=== PATIENT | female | born 1970 | race Caucasian/White ===

== ENCOUNTER 2017-04-08 09:16 | Emergency (ER) | payer BC ==
[~2017-04-08] VITALS: Ht 160 cm; Wt 63.5 kg
[~2017-04-08 09:16] MED LIST: AMOXICILLIN125 MG PO; BECONASE AQ25 GM; FLAGYL500 MG PO
--- NOTE | 2017-04-08 10:16 | Diagnostic Imaging Report ---
Exam: Head CT without contrast History: Unsteady gait, tingling in feet Comparison studies: None Technique: Axial images were obtained from the skull base to the vertex. Coronal and sagittal images reconstructed from the axial data. Intravenous contrast: None Findings: Scalp: No abnormalities. Bones: No fractures, blastic or lytic lesions. Brain sulci: Appropriate for age. Ventricles: Normal in size and configuration. No hydrocephalus. Extra-axial spaces: No masses, no fluid collection. Parenchyma: No abnormal densities. No masses, hemorrhage, acute or chronic vascular insults. Sellar/suprasellar region: No abnormalities. Craniocervical junction: Patent foramen magnum. No Chiari one malformation. IMPRESSION: No intracranial abnormalities. Signed by: Dr. Gonzalo Taylor M.D. on 04/08/2017 10:12 AM
[2017-04-08 11:42] LABS: BILIRUBIN,URINE NEGATIVE (NEGATIVE); KETONES,URINE NEGATIVE (NEGATIVE); LEUKOCYTE ESTERASE ,URINE NEGATIVE (NEGATIVE); NITRITE,URINE NEGATIVE (NEGATIVE); PROTEIN,URINE DIPSTICK NEGATIVE (NEGATIVE); URINE UROBILINOGEN 0.2 mg/dL (0.2 - 1)
[2017-04-08 11:46] LABS: CLARITY,URINE CLEAR (CLEAR); COLOR,URINE YELLOW (YELLOW)
[2017-04-08 12:05] LABS: BASOPHILS # (AUTO) 0.1 (0.0-0.1); BASOPHILS % 0.5 % (0.0-1.0); EOSINOPHILS # (AUTO) 0.1 (0.0-0.4); EOSINOPHILS % 0.5 % (0.0-6.0); HEMATOCRIT 43.8 % (34.2-44.1); HEMOGLOBIN 14.7 g/dL (12.0-16.0); LYMPHOCYTES % 15.7 % (18.0-39.1); MEAN CORPUSCULAR HEMOGLOBIN 29.8 pg (28-32); MEAN CORPUSCULAR HGB CONC 33.6 g/dL (31-35); MEAN CORPUSCULAR VOLUME 88.8 fL (81-99); MONOCYTES # (AUTO) 0.9 (0.2-0.8); MONOCYTES % 4.8 % (4.4-11.3); NEUTROPHILS # (AUTO) 14.9 (2.1-6.9); NEUTROPHILS % 78.1 % (38.7-80.0); PLATELET COUNT 277 x10e3/uL (140-360); RED BLOOD COUNT 4.93 x10e6/uL (3.6-5.1); RED CELL DISTRIBUTION WIDTH 13.4 % (11.7-14.4)
[2017-04-08 12:05] LABS: BACTERIA,URINE RARE /HPF; EPITHELIAL CELLS,URINE RARE /LPF
[2017-04-08 12:19] LABS: ALANINE AMINOTRANSFERASE 13 IU/L (0-55); ALBUMIN 4.5 g/dL (3.5-5.0); ALBUMIN/GLOBULIN RATIO 1.3 (0.8-2.0); ALKALINE PHOSPHATASE 85 IU/L (40-150); ANION GAP 14.1 mmol/L (8-16); BLOOD UREA NITROGEN 10 mg/dL (7-26); BUN/CREATININE RATIO 12 (6-25); CALCIUM 9.9 mg/dL (8.4-10.2); CARBON DIOXIDE 24 mmol/L (22-29); CHLORIDE 109 mmol/L (98-107); CREATINE KINASE 53 IU/L (29-168); CREATININE, SERUM 0.81 mg/dL (0.57-1.11); EST GLOMERULAR FILTRATION RATE > 60 ML/MIN (60-); GLUCOSE 109 mg/dL (74-118); POTASSIUM 4.1 mmol/L (3.5-5.1); SODIUM 143 mmol/L (136-145)
[2017-04-08 12:26] LABS: TROPONIN I 0.003 ng/mL (0-0.300)
== END 2017-04-08 13:30 | disposition left against medical advice (07) ==
LOC: ER 09:16
DX: M54.5 Low back pain (principal); R42 Dizziness and giddiness; F17.210 Nicotine dependence, cigarettes, uncomplicated
CPT/HCPCS: 36415; 70450; 80053; 81001; 82550; 82553; 84484; 85025; 99284

== ENCOUNTER 2017-05-02 16:28 | Emergency (ER) | payer BC ==
[~2017-05-02] VITALS: Ht 160 cm; Wt 68.0 kg
--- OUTSIDE RECORDS SUMMARY | 2017-05-02 16:30 | XMS REPORT | Summary of Care ---
Author Author LIV JONES N.P. Organization Unknown Address Unknown Phone Unavailable Care Team Providers Care Machine Operator Helper Name Role Phone LIV JONES N.P. Unavailable Unavailable Functional Status Name Dates Details Functional status health issues are not documented Status: Name Dates Details Cognitive status health issues are not documented Status: Problems Name Dates Details Vertigo (780.4, R42) Status: Active Medications Name Dates Details Cyclobenzaprine HCl - 5 MG Oral Tablet TAKE 1 TABLET AT BEDTIME NEEDED. LIV JONES N.P. * Start : 13-Apr-2017 Active Allergies and Adverse Reactions Name Dates Details No Known Drug Allergies (Allergy) Status: Active Past Medical History Name Dates Details History of No significant past medical history Status: Resolved Procedures Procedure Dates Details History of tibia fracture repair Completed History of fibula fracture repair Completed Immunization Name Dates Details Immunizations not documented Social History Name Dates Details - Status: Name Dates Details Current every day smoker Vital Signs Date Test Result Details [id number]:00 BP Systolic 181 mm[Hg] Status: BP Diastolic 97 mm[Hg] Status: Temperature 98.6 f Status: Heart Rate 109 /min Status: Respiration Rate 16 /min Status: O2 SAT 98 % Status: 19-Adh-24037:13 BP Systolic 110 mm[Hg] Status: BP Diastolic 88 mm[Hg] Status: Temperature 98.5 f Status: Heart Rate 90 /min Status: Respiration Rate 16 /min Status: O2 SAT 96 % Status: Height 63 in Status: Weight 153 lb Status: Body Mass Index Calculated 27.1 kg/m2 Status: Body Surface Area Calculated 1.73 m2 Status: Results Date Description Value Details Results not documented Plan of Care Name Dates Details Planned Observations Planned Goals not documented Interventions Provided Discussion/Summary* No adverse findings on clinical exam. Her B/P is elevated 181/97. * EKG: Sinus Rhythm. No adverse findings. * Blood glucose: 121. * Reposed in the Quiet room for sosa. 30 minute. * States she still feels slightly dizzy. * She feels she is well enough to drive herself home and go to bed. * Discussed with her: Exacerbation of symptoms: SOB; Increased dizziness: to call for Emergency services. * Gave her my phone number to call me for any concern. * Consult with Dr. Clark:Concurs with plan. * To follow up with her PCP. Instructions Name Dates Details Instructions not documented Encounters No Encounter data documented Encounter Diagnosis: Problem not documented On: 28-Apr-2017
--- OUTSIDE RECORDS SUMMARY | 2017-05-02 16:30 | XMS REPORT ---
Author Author [facility] Address Unknown Phone Unavailable Care Team Providers Care Wholesale Diamond Broker Name Role Phone TRISTAN HAIDER Unavailable Unavailable Problems This patient has no known problems. Allergies, Adverse Reactions, Alerts This patient has no known allergies or adverse reactions. Medications This patient has no known medications. Results Test Description Test Time Test Comments Text Results Atomic Results Result Comments CT BRAIN WO [place] [address] Patient Name: JAYA MONTOYA MR #: [id number] : 1970 Age/Sex: 47/F Req #: [id number] Adm Physician: Ordered by: TRISTAN HAIDER MD Report #: [id number] Location: ER Room/Bed: Procedure: [id number] CT/CT BRAIN WO Exam Date: 04/08/17 Exam Time: 0950 REPORT STATUS: Signed Exam: Head CT without contrast History: Unsteady gait, tingling in feet Comparison studies: None Technique: Axial images were obtained from the skull base to the vertex. Coronal and sagittal images reconstructed from the axial data. Intravenous contrast: None Findings: Scalp: No abnormalities. Bones: No fractures, blastic or lytic lesions. Brain sulci: Appropriate for age. Ventricles: Normal in size and configuration. No hydrocephalus. Extra-axial spaces: No masses, no fluid collection. Parenchyma: No abnormal densities. No masses, hemorrhage, acute or chronic vascular insults. Sellar/suprasellar region: No abnormalities. Craniocervical junction: Patent foramen magnum. No Chiari one malformation. IMPRESSION: No intracranial abnormalities. Signed by: Dr. Kimmie Conte M.D. on 04/08/2017 10:12 AM Dictated By : KIMMIE CONTE MD 1012 Transcribed By: RAJEEV on 04/08/17 1012 COPY TO: TRISTAN HAIDER MD
[2017-05-02] MEDS ORDERED: DEXAMETHASONE SOD PHOS 10 MG/1 ML VIAL IV ONE (18:30)
[2017-05-02] MEDS ORDERED: MECLIZINE HCL 12.5 MG TAB PO ONE (18:30)
[2017-05-02] MEDS ORDERED: SODIUM CHLORIDE 0.9% 1000ML 1,000 ML IV STA (18:30)
[2017-05-02] MEDS ORDERED: SCOPOLAMINE 1.5 MG PATCH TOP ONE (18:40)
[2017-05-02 18:43] LABS: BASOPHILS # (AUTO) 0.1 (0.0-0.1); BASOPHILS % 0.5 % (0.0-1.0); EOSINOPHILS # (AUTO) 0.1 (0.0-0.4); EOSINOPHILS % 0.7 % (0.0-6.0); HEMATOCRIT 43.5 % (34.2-44.1); HEMOGLOBIN 15.1 g/dL (12.0-16.0); LYMPHOCYTES # (AUTO) 4.1 (1.0-3.2); LYMPHOCYTES % 26.7 % (18.0-39.1); MEAN CORPUSCULAR HEMOGLOBIN 29.9 pg (28-32); MEAN CORPUSCULAR HGB CONC 34.7 g/dL (31-35); MEAN CORPUSCULAR VOLUME 86.1 fL (81-99); MONOCYTES % 6.4 % (4.4-11.3); NEUTROPHILS % 65.3 % (38.7-80.0); PLATELET COUNT 283 x10e3/uL (140-360); RED BLOOD COUNT 5.05 x10e6/uL (3.6-5.1); RED CELL DISTRIBUTION WIDTH 13.7 % (11.7-14.4)
--- NOTE | 2017-05-02 19:02 | Diagnostic Imaging Report ---
EXAMINATION: Head CT HISTORY: Dizziness and unsteady gait, tingling sensation in the feet COMPARISON: Head CT on 04/08/2017 TECHNIQUE: Multidetector axial images were obtained without contrast from the foramen magnum to the vertex . The images were reconstructed using brain and bone algorithms. Thin section brain images were reformatted into coronal and sagittal planes. Intravenous contrast: None. Motion/streaking artifact limits the evaluation of the skull base and posterior cranial fossa. FINDINGS: Parenchyma: 1. No abnormal densities. 2. No mass or hemorrhage. No CT evidence of acute territorial vascular insult. Extra-axial spaces:No abnormal density. No extra-axial fluid collections Brain volume: Normal for age. Ventricles: No hydrocephalus or displacement. Arteries: No density suggestive of thrombus. Dural sinuses: No abnormal density. Extra-axial spaces: No abnormal density. Foramen magnum: No mass, Chiari malformation, or basilar invagination. Sella: No obvious mass. Paranasal/mastoid sinuses: Imaged portions unremarkable. Skull/Scalp: No lytic or blastic lesions. No fractures. IMPRESSION: Normal head CT. Unchanged from head CT on 04/08/2017 Signed by: Dr. Teagan Jeff M.D. on 05/02/2017 6:59 PM
[2017-05-02 19:05] LABS: ALANINE AMINOTRANSFERASE 13 IU/L (0-55); ALBUMIN 4.7 g/dL (3.5-5.0); ALBUMIN/GLOBULIN RATIO 1.3 (0.8-2.0); ALKALINE PHOSPHATASE 82 IU/L (40-150); ANION GAP 13.4 mmol/L (8-16); BLOOD UREA NITROGEN 9 mg/dL (7-26); BUN/CREATININE RATIO 12 (6-25); CALCIUM 9.8 mg/dL (8.4-10.2); CARBON DIOXIDE 23 mmol/L (22-29); CHLORIDE 109 mmol/L (98-107); CREATININE, SERUM 0.76 mg/dL (0.57-1.11); EST GLOMERULAR FILTRATION RATE > 60 ML/MIN (60-); GLUCOSE 98 mg/dL (74-118); POTASSIUM 3.4 mmol/L (3.5-5.1); SODIUM 142 mmol/L (136-145)
[2017-05-02 19:22] LABS: MAGNESIUM 1.8 MG/DL (1.3-2.1); PHOSPHORUS 3.3 MG/DL (2.3-4.7)
[2017-05-02 19:34] LABS: BILIRUBIN,URINE NEGATIVE (NEGATIVE); COLOR,URINE YELLOW (YELLOW); KETONES,URINE NEGATIVE (NEGATIVE); LEUKOCYTE ESTERASE ,URINE NEGATIVE (NEGATIVE); NITRITE,URINE NEGATIVE (NEGATIVE); URINE UROBILINOGEN 0.2 mg/dL (0.2 - 1)
[2017-05-02 19:35] LABS: CLARITY,URINE SL CLOUDY (CLEAR); PROTEIN,URINE DIPSTICK TRACE (NEGATIVE)
[2017-05-02 19:44] LABS: THYROID STIMULATING HORMONE 2.281 uIU/mL (0.350-4.940)
[2017-05-02 19:49] LABS: CALCIUM OXALATE CRYSTALS,UR MANY (FEW); EPITHELIAL CELLS,URINE RARE /LPF
[2017-05-02 20:13] VITALS: BP 128/69
== END 2017-05-02 20:39 | disposition home or self-care (01) ==
LOC: ER 16:28
DX: R42 Dizziness and giddiness (principal); F17.210 Nicotine dependence, cigarettes, uncomplicated
CPT/HCPCS: 36415; 70450; 80053; 81001; 83735; 84100; 84443; 85025; 99284; J1100; J7030

== ENCOUNTER 2018-08-14 12:26 | Emergency (ER) | payer BC, OTHER ==
[~2018-08-14] VITALS: Ht 160 cm; Wt 68.0 kg
[2018-08-14] MEDS ORDERED: SODIUM CHLORIDE 0.9% 1000ML 1,000 ML IV STA (12:46)
[2018-08-14] MEDS ORDERED: FAMOTIDINE 20 MG/2 ML VIAL IV STA (12:46)
[2018-08-14] MEDS ORDERED: MECLIZINE HCL 12.5 MG TAB PO ONE (13:00)
--- NOTE | 2018-08-14 13:12 | NUR ---
bilateral bp's rt arm 181/79 left arm 178/83
--- OUTSIDE RECORDS SUMMARY | 2018-08-14 13:36 | XMS REPORT | Summary of Care ---
Author Author LIV JONES N.P. Organization Unknown Address Unknown Phone Unavailable Care Team Providers Care Enterprise Application Administrator Name Role Phone LIV JONES N.P. Unavailable [...] smoker Vital Signs Date Test Result Details 1-Jtn-[id number]:00 BP Systolic 181 mm[Hg] Status: BP Diastolic 97 mm[Hg] Status: Temperature 98.6 f Status: Heart Rate 109 /min Status: Respiration Rate 16 /min Status: O2 SAT 98 % Status: 14-Hne-80717:13 BP Systolic 110 mm[Hg] Status: BP Diastolic [...]
[2018-08-14 13:41] LABS: BASOPHILS # (AUTO) 0.1 (0.0-0.1); BASOPHILS % 0.7 % (0.0-1.0); EOSINOPHILS # (AUTO) 0.3 (0.0-0.4); EOSINOPHILS % 2.1 % (0.0-6.0); HEMATOCRIT 39.2 % (34.2-44.1); HEMOGLOBIN 13.3 g/dL (12.0-16.0); LYMPHOCYTES # (AUTO) 3.5 (1.0-3.2); LYMPHOCYTES % 28.5 % (18.0-39.1); MEAN CORPUSCULAR HEMOGLOBIN 29.4 pg (28-32); MEAN CORPUSCULAR HGB CONC 33.9 g/dL (31-35); MEAN CORPUSCULAR VOLUME 86.7 fL (81-99); MONOCYTES % 7.7 % (4.4-11.3); NEUTROPHILS # (AUTO) 7.5 (2.1-6.9); NEUTROPHILS % 60.6 % (38.7-80.0); PLATELET COUNT 262 x10e3/uL (140-360); RED BLOOD COUNT 4.52 x10e6/uL (3.6-5.1)
[2018-08-14 13:42] LABS: BILIRUBIN,URINE NEGATIVE (NEGATIVE); CLARITY,URINE CLEAR (CLEAR); COLOR,URINE YELLOW (YELLOW); KETONES,URINE NEGATIVE (NEGATIVE); LEUKOCYTE ESTERASE ,URINE NEGATIVE (NEGATIVE); NITRITE,URINE NEGATIVE (NEGATIVE); PROTEIN,URINE DIPSTICK NEGATIVE (NEGATIVE); URINE UROBILINOGEN 0.2 mg/dL (0.2 - 1)
[2018-08-14] MEDS: DONNATAL/LIDOCAINE/MAALOX 30 ML SUSP PO STA ×2 (13:44→14:33)
[2018-08-14 13:54] LABS: BACTERIA,URINE RARE /HPF; EPITHELIAL CELLS,URINE RARE /LPF; RBC,URINE 0-5 /HPF (0-5)
--- NOTE | 2018-08-14 13:55 | Diagnostic Imaging Report ---
EXAMINATION: CHEST SINGLE (PORTABLE) INDICATION: Dizziness, shortness of breath. COMPARISON: None FINDINGS: TUBES and LINES: None. LUNGS: Lungs are moderately inflated. There is no evidence of pneumonia or pulmonary edema. PLEURA: No pleural effusion or pneumothorax. HEART AND MEDIASTINUM: The cardiomediastinal silhouette is unremarkable. BONES AND SOFT TISSUES: No acute osseous abnormality. UPPER ABDOMEN: No free air under the diaphragm. IMPRESSION: No acute radiographic abnormality. Signed by: Dr. Anatoly Dick MD on 08/14/2018 1:52 PM
--- NOTE | 2018-08-14 14:01 | Diagnostic Imaging Report ---
History: Dizziness Comparison studies: CT head 05/02/2017 and 04/08/2017 Technique: Axial images were obtained from the skull base to the vertex. Coronal and sagittal reconstructions obtained from the axial data. Dose modulation, iterative reconstruction, and/or weight based adjustment of the mA/kV was utilized to reduce the radiation dose to as low as reasonably achievable. Findings: Scalp/skull: No abnormalities. No fractures, blastic or lytic lesions. Extra-axial spaces: No masses. No fluid collections. Brain sulci: Appropriate for age. Ventricles: Normal in size and configuration. No hydrocephalus. Parenchyma: No abnormal densities. No masses, hemorrhage, acute or chronic cortical vascular insults. Sellar/suprasellar region: No abnormalities Craniocervical junction: Patent foramen magnum. No Chiari one malformation. Air-fluid levels and bubbly secretions at the right maxillary and sphenoid sinuses. IMPRESSION: No intracranial abnormalities . Right maxillary and sphenoid sinusitis. Signed by: DR Gian Rosario M.D. on 08/14/2018 1:58 PM
[2018-08-14 14:03] LABS: ALANINE AMINOTRANSFERASE 18 IU/L (0-55); ALBUMIN 4.1 g/dL (3.5-5.0); ALBUMIN/GLOBULIN RATIO 1.3 (0.8-2.0); ALKALINE PHOSPHATASE 80 IU/L (40-150); AMYLASE 48 U/L (25-125); ANION GAP 11.5 mmol/L (8-16); BLOOD UREA NITROGEN 9 mg/dL (7-26); BUN/CREATININE RATIO 10 (6-25); CALCIUM 9.6 mg/dL (8.4-10.2); CARBON DIOXIDE 21 mmol/L (22-29); CHLORIDE 109 mmol/L (98-107); CREATINE KINASE 75 IU/L (29-168); CREATININE, SERUM 0.87 mg/dL (0.57-1.11); EST GLOMERULAR FILTRATION RATE > 60 ML/MIN (60-); GLUCOSE 114 mg/dL (74-118); LIPASE 34 U/L (8-78); MAGNESIUM 2.6 MG/DL (1.3-2.1); POTASSIUM 3.5 mmol/L (3.5-5.1); SODIUM 138 mmol/L (136-145)
== END 2018-08-14 15:54 | disposition home or self-care (01) ==
LOC: ER 12:26
DX: R42 Dizziness and giddiness (principal); H81.11 Benign paroxysmal vertigo, right ear; J01.00 Acute maxillary sinusitis, unspecified; J01.30 Acute sphenoidal sinusitis, unspecified; I10 Essential (primary) hypertension; M06.9 Rheumatoid arthritis, unspecified
CPT/HCPCS: 36415; 70450; 71045; 80053; 81001; 82150; 82550; 82553; 83690; 83735; 84484; 85025; 93005; 99284

== ENCOUNTER 2018-08-18 13:38 | Emergency (ER) | payer BC ==
[~2018-08-18] VITALS: Ht 160 cm; Wt 68.0 kg
[2018-08-18] MEDS ORDERED: HYDROCODONE/APAP 5MG-325MG TAB PO ONE (14:00)
[2018-08-18] MEDS ORDERED: IBUPROFEN 400 MG TAB PO ONE (14:00)
--- NOTE | 2018-08-18 15:50 | NUR ---
PT STATES ON DEPO SHOT AND HAD TUBAL AND NO SEXUAL ACTIVITY IN 5 YRS AND DECLINED UA/UPT. MD NOTIFIED.
--- NOTE | 2018-08-18 16:05 | Diagnostic Imaging Report ---
Exam: Rib series History: Pain Comparison: None. Findings: No fracture or malalignment. No abnormal soft tissue calcification or soft tissue defect. Impression: No acute osseous abnormality Signed by: Dr. Lj Zavala M.D. on 08/18/2018 4:01 PM
== END 2018-08-18 17:34 | disposition home or self-care (01) ==
LOC: ER 13:38
DX: R07.89 Other chest pain (principal); R09.1 Pleurisy
CPT/HCPCS: 71101; 99283

== ENCOUNTER 2018-11-10 08:21 | Observation (INO) | payer BC, OTHER ==
[~2018-11-10] VITALS: Ht 160 cm; Wt 68.0 kg
[2018-11-10] MEDS ORDERED: SODIUM CHLORIDE 0.9% 1000ML 1,000 ML IV STA (08:37)
[2018-11-10 09:51] LABS: BASOPHILS # (AUTO) 0.1 (0.0-0.1); BASOPHILS % 0.3 % (0.0-1.0); EOSINOPHILS # (AUTO) 0.1 (0.0-0.4); EOSINOPHILS % 0.3 % (0.0-6.0); HEMOGLOBIN 13.9 g/dL (12.0-16.0); LYMPHOCYTES # (AUTO) 2.1 (1.0-3.2); LYMPHOCYTES % 11.4 % (18.0-39.1); MEAN CORPUSCULAR HEMOGLOBIN 30.2 pg (28-32); MEAN CORPUSCULAR HGB CONC 34.8 g/dL (31-35); MEAN CORPUSCULAR VOLUME 86.8 fL (81-99); MONOCYTES # (AUTO) 1.4 (0.2-0.8); MONOCYTES % 7.4 % (4.4-11.3); NEUTROPHILS # (AUTO) 14.8 (2.1-6.9); NEUTROPHILS % 80.1 % (38.7-80.0); PLATELET COUNT 239 x10e3/uL (140-360); RED BLOOD COUNT 4.61 x10e6/uL (3.6-5.1); RED CELL DISTRIBUTION WIDTH 13.3 % (11.7-14.4)
[2018-11-10 09:57] LABS: BILIRUBIN,URINE NEGATIVE (NEGATIVE); CLARITY,URINE CLEAR (CLEAR); COLOR,URINE YELLOW (YELLOW); KETONES,URINE NEGATIVE (NEGATIVE); LEUKOCYTE ESTERASE ,URINE NEGATIVE (NEGATIVE); NITRITE,URINE NEGATIVE (NEGATIVE); PROTEIN,URINE DIPSTICK NEGATIVE (NEGATIVE); URINE UROBILINOGEN 0.2 mg/dL (0.2 - 1)
[2018-11-10] MEDS ORDERED: KETOROLAC TROMETHAMINE 30 MG/ML VIAL IV NR (10:00)
[2018-11-10 10:01] LABS: INR 0.92; PROTHROMBIN TIME 12.8 seconds (11.9-14.5)
[2018-11-10 10:03] LABS: PARTIAL THROMBOPLASTIN TIME 30.1 seconds (23.8-35.5)
[2018-11-10 10:07] LABS: BACTERIA,URINE MODERATE /HPF; EPITHELIAL CELLS,URINE MODERATE /LPF; MUCUS,URINE MODERATE (RARE); PREGNANCY TEST, URINE NEGATIVE (NEGATIVE); RBC,URINE 0-5 /HPF (0-5)
[2018-11-10 10:10] LABS: ALANINE AMINOTRANSFERASE 11 IU/L (0-55); ALBUMIN/GLOBULIN RATIO 1.3 (0.8-2.0); ALKALINE PHOSPHATASE 83 IU/L (40-150); ANION GAP 16.5 mmol/L (8-16); BLOOD UREA NITROGEN 9 mg/dL (7-26); BUN/CREATININE RATIO 11 (6-25); CALCIUM 9.8 mg/dL (8.4-10.2); CARBON DIOXIDE 21 mmol/L (22-29); CHLORIDE 106 mmol/L (98-107); CREATINE KINASE 68 IU/L (29-168); CREATININE, SERUM 0.83 mg/dL (0.57-1.11); EST GLOMERULAR FILTRATION RATE > 60 ML/MIN (60-); GLUCOSE 111 mg/dL (74-118); POTASSIUM 3.5 mmol/L (3.5-5.1); SODIUM 140 mmol/L (136-145)
--- NOTE | 2018-11-10 11:35 | Diagnostic Imaging Report ---
CT of the chest, PE protocol, with contrast, 11/10/2018. History: Chest pain with inspiration. Comparison: Chest x-ray 08/14/2018. Technique: Multidetector thin collimation CT scanning of the chest was performed from the level of the apices to the upper abdomen during the pulmonary arterial phase, after intravenous administration of contrast. Coronal and sagittal MIP reformations were obtained. RADIATION DOSE: Total DLP: 581 mGy*cm Dose modulation, iterative reconstruction, and/or weight based adjustment of the mA/kV was utilized to reduce the radiation dose to as low as reasonably achievable. Discussion: Chest: The pulmonary arteries are well-opacified without evidence of filling defect or vessel cut off. The main pulmonary artery is normal in size measuring 1.9 cm in diameter. The heart and aorta are normal in size. An aberrant right subclavian artery is noted. Thyroid is unremarkable. There is no axillary or mediastinal adenopathy. There is scattered bilateral subsegmental atelectasis. No evidence of consolidation, mass, or effusion. Limited evaluation of the upper abdomen shows normal bilateral adrenal glands. Several stones are present within the gallbladder without evidence of gallbladder wall thickening. Bones and soft tissues: No acute abnormality. Mild degenerative changes are present throughout the thoracic spine. IMPRESSION: 1. No evidence of acute pulmonary embolus. 2. Scattered bilateral atelectasis. 3. Incidental note of an aberrant right subclavian artery. 4. Cholelithiasis. This may be further evaluated with right upper quadrant ultrasound. Signed by: Suleiman Montes on 11/10/2018 11:32 AM
[2018-11-10] MEDS ORDERED: NITROGLYCERIN 0.4 MG SUBL SL PRN (12:00)
[2018-11-10] MEDS ORDERED: ONDANSETRON HCL INJ 2MG/ML 2ML 2 MG/ML VIAL IV PRN (12:00)
[2018-11-10] MEDS ORDERED: ASPIRIN 325 MG TAB EC PO NR (12:00)
[2018-11-10] MEDS: METOPROLOL TARTRATE 25 MG TAB PO SCH ×2 (13:24→23:59)
[2018-11-10] MEDS ORDERED: IOPAMIDOL 370 MG/ML 200 ML INFUS..BTL INJ ONE (14:07)
[2018-11-10] MEDS ORDERED: SODIUM CHLORIDE 0.9% 50ML 50 ML ONE (14:07)
[2018-11-10 15:40] VITALS: BP_SYST 132; BP_SYST 133; BP_DIAS 61; BP_DIAS 69
--- NOTE | 2018-11-10 15:42 | NUR ---
Pt received from ER at this time. Pt is aox4 and able to verbalize needs. Pt states she has dull pain to left chest wall radiating to neck and back but is tolerable. Pt is able to ambulate without assistance. Denies SOB. Skin is intact.
[2018-11-10 16:23] VITALS: BP 132/69
[2018-11-10 16:40] LABS: CREATINE KINASE MB 0.3 ng/mL (0-5.0)
[2018-11-10] MEDS ORDERED: IBUPROFEN 600 MG TAB PO PRN (17:45)
[2018-11-10] MEDS ORDERED: IBUPROFEN 400 MG TAB PO PRN (18:00)
--- NOTE | 2018-11-10 18:00 | NUR ---
Pt refusing to have gallbladder ultrasound because of pain to left shoulder and and left chest wall. Pain medication was administered and warm compress was given.
[2018-11-10] MEDS: MORPHINE SULFATE 2 MG/ML SYR 1ML IV PRN ×2 (18:16→21:43)
[2018-11-10] MEDS: METHOCARBAMOL 750 MG TAB PO SCH (18:29)
--- NOTE | 2018-11-10 19:30 | NUR ---
Pt visited in room during nursing rounds. Patient alert and oriented x4. Pt with frequent pain on left side of body radiating to left arms and left shoulder. Warm to hot compress applied with some comfort and medicated accordingly. Pt ambulatory in room prn. Call pace within reach.
[2018-11-10 20:00] VITALS: BP 124/84
[2018-11-10] MEDS ORDERED: FAMOTIDINE 20 MG/2 ML VIAL IV SCH (21:00)
[2018-11-10] MEDS: FAMOTIDINE 20 MG TAB PO SCH (21:43)
[2018-11-10] MEDS: AMOXICILLIN/CLAVULANATE K 500 MG TAB PO SCH (21:43)
[2018-11-11] VITALS: BP 150/79
[2018-11-11] MEDS: MORPHINE SULFATE 2 MG/ML SYR 1ML IV PRN ×2 (00:48→04:54)
[2018-11-11 03:35] LABS: BASOPHILS # (AUTO) 0.1 (0.0-0.1); BASOPHILS % 0.4 % (0.0-1.0); EOSINOPHILS # (AUTO) 0.1 (0.0-0.4); EOSINOPHILS % 1.1 % (0.0-6.0); HEMATOCRIT 32.9 % (34.2-44.1); HEMOGLOBIN 11.5 g/dL (12.0-16.0); LYMPHOCYTES # (AUTO) 3.2 (1.0-3.2); LYMPHOCYTES % 28.2 % (18.0-39.1); MEAN CORPUSCULAR HEMOGLOBIN 30.3 pg (28-32); MEAN CORPUSCULAR VOLUME 86.6 fL (81-99); MONOCYTES # (AUTO) 1.2 (0.2-0.8); MONOCYTES % 10.3 % (4.4-11.3); NEUTROPHILS # (AUTO) 6.9 (2.1-6.9); NEUTROPHILS % 59.7 % (38.7-80.0); PLATELET COUNT 217 x10e3/uL (140-360); RED CELL DISTRIBUTION WIDTH 13.3 % (11.7-14.4)
[2018-11-11 04:00] VITALS: BP 108/63
[2018-11-11 04:16] LABS: ANION GAP 11.5 mmol/L (8-16); BLOOD UREA NITROGEN 7 mg/dL (7-26); BUN/CREATININE RATIO 10 (6-25); CALCIUM 9.1 mg/dL (8.4-10.2); CARBON DIOXIDE 21 mmol/L (22-29); CHLORIDE 114 mmol/L (98-107); CREATININE, SERUM 0.73 mg/dL (0.57-1.11); EST GLOMERULAR FILTRATION RATE > 60 ML/MIN (60-); GLUCOSE 94 mg/dL (74-118); POTASSIUM 3.5 mmol/L (3.5-5.1); SODIUM 143 mmol/L (136-145)
[2018-11-11] MEDS: METHOCARBAMOL 750 MG TAB PO SCH (04:55)
[2018-11-11 05:26] LABS: CHOL/HDL RATIO 5.1 (3.0-3.6); CHOLESTEROL 154 MD/DL (0-199); HDL CHOLESTEROL 30 MG/DL (40-60); LDL CHOLESTEROL 103 MG/DL (60-130); TRIGLYCERIDES 105 MG/DL (0-149)
[2018-11-11 05:50] LABS: FREE T4 (FREE THYROXINE) 0.94 ng/dL (0.8-1.8); THYROID STIMULATING HORMONE 2.547 uIU/mL (0.350-4.940)
[2018-11-11] MEDS ORDERED: METHOCARBAMOL750 MG PO (06:10)
[2018-11-11] MEDS ORDERED: ASPIRIN EC81 MG PO (06:10)
[2018-11-11] MEDS ORDERED: Ibuprofen PO (06:10)
[2018-11-11] MEDS ORDERED: ESIDRIX25 MG PO (06:10)
[2018-11-11] MEDS ORDERED: LOPRESSOR25 MG PO (06:10)
[2018-11-11] MEDS ORDERED: AUGMENTIN 500-1 EACH PO (06:10)
--- NOTE | 2018-11-11 06:58 | NUR ---
Called and spoke with answering service (Keli) and informed regarding cancelled consultation for Dr. Wright/Dr. Roberts that was ordered by Aida Martin (BIJAN). Keli stated she will relay the message.
[2018-11-11 07:52] VITALS: BP 111/59
[2018-11-11] MEDS ORDERED: NICOTINE 7 MG PATCH TOP SCH (09:00)
[2018-11-11] MEDS ORDERED: HYDROCHLOROTHIAZIDE 25 MG TAB PO SCH (09:00)
[2018-11-11] MEDS ORDERED: ASPIRIN 81 MG ENTERIC COATED PO SCH (09:00)
[2018-11-11] MEDS: AMOXICILLIN/CLAVULANATE K 500 MG TAB PO SCH (09:02)
[2018-11-11] MEDS: FAMOTIDINE 20 MG TAB PO SCH (09:04)
--- NOTE | 2018-11-11 10:30 | NUR ---
Pt is asking what time Cardiology will be here so she can go home. spoke with Dr. Swartz and he states he will be here later this afternoon to see pt.
--- NOTE | 2018-11-11 11:00 | NUR ---
Pt states she cannot wait for Cardiology to come see her. She states she has a sick son at home that she is worried about. Notified attending and received orders to discharge pt home.
--- NOTE | 2018-11-11 20:19 | Discharge Summary ---
ADMISSION DIAGNOSES: Pleuritic chest pain, rule out myocardial infarction, hypertension, chronic sinusitis. DISCHARGE DIAGNOSES: Pleuritic chest pain, rule out myocardial infarction, hypertension, chronic sinusitis. HISTORY: Hypertension, hyperlipidemia, anxiety, chronic right sphenoid sinus infection. SURGICAL HISTORY: Left leg surgery, , tubal ligation. FAMILY HISTORY: The patient's mom and brother have CHF. The patient's brother had blood clots. SOCIAL HISTORY: The patient admits to occasional alcohol use and tobacco use. HOSPITAL COURSE: A 48-year-old female with palpable and pleuritic left chest wall pain x1 day, was started on NSAIDs, morphine, and Robaxin. CT of the chest showed no evidence of PE, scattered bilateral atelectasis. Troponins were negative x3. TSH is within normal limits. Electrolytes are within normal limits. The patient will discharge home with prescriptions for Augmentin, aspirin, hydrochlorothiazide, ibuprofen, methocarbamol, and metoprolol. The patient understands discharge instructions and agrees to plan. She will follow up with primary care in 1 to 2 weeks. Dictated by Aida Martin NP MD [facility]/MODL /[id number]
== END 2018-11-11 11:15 | disposition home or self-care (01) ==
LOC: ER 08:21 → ERHOLD 11:50 → MED/SURG3 15:35
PROVIDERS: ADMIT Internal Medicine; ATTEND Internal Medicine
DX: R07.81 Pleurodynia (principal); I10 Essential (primary) hypertension; J32.9 Chronic sinusitis, unspecified
CPT/HCPCS: 36415 ×2; 71260; 80048; 80053; 80061; 81001; 81025; 82550; 82553; 83735 ×2; 83880; 84439; 84443; 84484; 85025 ×2; 85610; 85651; 85730; 87086; 93005; 93306; 99284; G0378 ×2; J1885; J2270 ×2; J7030; Q9967

== ENCOUNTER 2018-11-13 11:25 | Emergency (ER) | payer OTHER ==
[~2018-11-13] VITALS: Ht 160 cm; Wt 73.3 kg
[~2018-11-13 11:25] MED LIST changes: +ASPIRIN EC81 MG PO; +AUGMENTIN 500-1 EACH PO; +ESIDRIX25 MG PO; +Ibuprofen PO; +LOPRESSOR25 MG PO; +METHOCARBAMOL750 MG PO
[2018-11-13] MEDS ORDERED: NAPROSYN500 MG PO (11:43)
[2018-11-13] MEDS ORDERED: KEFLEX500 MG PO (11:47)
--- NOTE | 2018-11-13 13:18 | Diagnostic Imaging Report ---
ULTRASOUND RIGHT UPPER EXTREMITY VEINS HISTORY: Swelling, redness IV site COMPARISON: None DISCUSSION: Right sided internal jugular, brachiocephalic, subclavian, axillary, brachial, cephalic and basilic veins were examined using berger scale compression ultrasound with the aid of color flow and pulsed wave Doppler. The cephalic vein is noncompressible and there is no internal color Doppler flow. IMPRESSION: Thrombosis of the right cephalic vein. Signed by: Dr. Heron Enamorado D.O., M.M.M. on 11/13/2018 1:14 PM
[2018-11-13 13:40] VITALS: BP 143/88
== END 2018-11-13 13:32 | disposition home or self-care (01) ==
LOC: FSED 11:25
DX: M79.621 Pain in right upper arm (principal); I80.8 Phlebitis and thrombophlebitis of other sites; Z98.890 Other specified postprocedural states
CPT/HCPCS: 93971; 99282

== ENCOUNTER → 2018-11-27 | Outpatient (CLI) | payer OTHER ==
[~2018-11-27] MED LIST changes: +KEFLEX500 MG PO; +NAPROSYN500 MG PO
--- NOTE | 2018-11-27 14:14 | Diagnostic Imaging Report ---
CT THORACIC SPINE WO HISTORY: Back pain COMPARISON: Chest CT 11/10/2018 TECHNIQUE: Axial CT images of the thoracic spine were obtained without intravenous contrast. Coronal/sagittal reformations were created. One or more of the following dose reduction techniques were used: Automated exposure control, adjustment of the mA and/or kV according to patient size, and/or utilization of iterative reconstruction technique. FINDINGS: Thoracic kyphosis is preserved. There is no significant scoliosis or subluxation. No fracture, compression deformity, or destructive osseous lesions are seen. No gross spinal canal mass is seen. The paravertebral and paraspinal soft tissues are unremarkable. Mild multilevel thoracic spondylosis is present. There is no significant canal or foraminal stenosis. IMPRESSION: 1. No acute osseous abnormalities. 2. Mild multilevel thoracic spondylosis without significant canal or foraminal stenosis. Signed by: Dr. Rahul Hensley M.D. on 11/27/2018 2:10 PM
--- NOTE | 2018-11-27 14:21 | Diagnostic Imaging Report ---
CT LUMBAR SPINE WO HISTORY: Back pain COMPARISON: Concurrent thoracic spine CT TECHNIQUE: Axial CT images of the lumbar spine were obtained without contrast. Coronal and sagittal reconstructions obtained from the axial data. One or more of the following dose reduction techniques were used: Automated exposure control, adjustment of the mA and/or kV according to patient size, and/or utilization of iterative reconstruction technique. DISCUSSION: There are 5 nonrib-bearing lumbar vertebral bodies. Lumbar lordosis is preserved. There is no significant scoliosis or subluxation. No fracture, compression deformity, or destructive osseous lesion is seen. No gross spinal canal mass is seen. The paravertebral and paraspinal soft tissues are unremarkable. Mild multilevel spondylosis is seen. Mild bilateral sacroiliac degenerative changes are partially visualized. L1-L2: No gross canal or foraminal stenosis. L2-L3: No gross canal or foraminal stenosis. L3-L4: Disc bulge without significant canal or foraminal stenosis. L4-L5: Mild to moderate left foraminal stenosis due to suspected small left foraminal disc herniation. No gross canal or right foraminal stenosis. L5-S1: Suspected small right paracentral disc herniation causes mild canal stenosis. No gross foraminal stenosis. Mild aortoiliac calcified atherosclerosis is seen IMPRESSION: 1. No acute osseous abnormalities. 2. Mild multilevel spondylosis. 3. Mild L5-S1 canal stenosis due to suspected small right paracentral disc herniation. 4. Mild to moderate left L4-L5 foraminal stenosis due to suspected small left foraminal disc herniation. Signed by: Dr. Rahul Hensley M.D. on 11/27/2018 2:18 PM
--- NOTE | 2018-11-27 16:02 | Diagnostic Imaging Report ---
Exam: Bone mineral density study. History: Osteopenia. Comparison: None Discussion: Evaluation of the left hip, and lumbar spine was performed utilizing DEXA Hologic bone densitometer. The study is technically adequate. Left hip total bone mineral density: 0.810gm/cm2, T-score is -1.1, Z-score is -0.7. Left hip femoral neck bone mineral density: 0.692gm/cm2, T-score is -1.4, Z-score is -0.8. Lumbar spine total bone mineral density:0.954gm/cm2, T-score is-0.8, Z-score is -0.2. Impression: 1. Osteopenia of the left hip, fracture risk is increased 2. Normal bone mineral density of the lumbar spine, fracture risk is not increased. Least significant change (LSC) for bone mineral density as provided by account development representative is 0.023 g/cm2 for lumbar spine and 0.027 g/cm2 for total hip. 10 -year fracture risk per WHO Fracture Risk Assessment Tool (FRAX) for: Major osteoporotic fracture is 7.7% Hip fracture is 1.1% The above fracture probability is calculated for an untreated patient. Fracture probably may be lower if the patient has received treatment. All treatment decisions require clinical judgment and consideration of individual patient factors, including patient preferences, comorbidities, previous drug use and risk factors not captured in the FRAX model (e.g. frailty, falls, vitamin D deficiency, increased bone turnover, interval significant decline in BMD). The patient's fracture risk is compared to an age-matched control. Medical evaluation for secondary causes of low bone bone mineral density may be appropriate. Correlate clinically for the necessity and timing of the next bone mineral density study. Signed by: Dr. Marlon Paul M.D. on 11/27/2018 3:58 PM
--- NOTE | 2018-11-29 08:44 | Diagnostic Imaging Report ---
#[id number] - MGSCRBIL #BILATERAL FIRST EVER DIGITAL SCREENING MAMMOGRAM WITH CAD: 11/27/2018 CLINICAL: Routine screening. Baseline exam. No prior exams were available for comparison. Current study contains 6 films. There are scattered fibroglandular elements in both breasts. Current study was also evaluated with a Computer Aided Detection (CAD) system. Benign appearing calcifications are noted in the left breast. There is a density with an obscured margin in the right breast at 11 o'clock posterior depth. There is a density with an obscured margin in the left breast at 5 o'clock anterior depth. No other significant masses or calcifications are seen in either breast. IMPRESSION: INCOMPLETE: NEEDS ADDITIONAL IMAGING EVALUATION The density in the right breast at 11 o'clock posterior depth is indeterminate. Compression views as well as a possible ultrasound are recommended. The density in the left breast at 5 o'clock anterior depth is indeterminate. Compression views as well as a possible ultrasound are recommended. The patient will be contacted by the Mammography Department to schedule this appointment. LUH SAGASTUME M.D. ct/penrad:11/28/2018 17:04:46 Informatics Application Analyst: Deirdre MADDOX)(Shant), [facility] letter sent: Additional Imaging Needed Mammogram BI-RADS: 0 Indeterminate
== END ==
LOC: MAMMO 11:40
PROVIDERS: ATTEND Internal Medicine
DX: Z12.31 Encounter for screening mammogram for malignant neoplasm of breast (principal); M89.9 Disorder of bone, unspecified; M54.6 Pain in thoracic spine; M54.5 Low back pain
CPT/HCPCS: 72128; 72131; 77067; 77080

== ENCOUNTER → 2018-12-14 | Outpatient (CLI) | payer OTHER ==
--- NOTE | 2018-12-15 09:15 | Diagnostic Imaging Report ---
#[id number] - MGDXBIL #BILATERAL DIGITAL DIAGNOSTIC MAMMOGRAM WITH SPOT COMPRESSION: 12/14/2018 Comparison is made to exam dated: 11/27/2018 mammogram - [facility]. Current study contains 6 films. There are scattered fibroglandular elements in both breasts. Additional views demonstrate no underlying abnormality on the right. There is an oval mass in the left breast at 6 o'clock anterior depth. This is seen in additional views. This correlates with ultrasound findings. No other significant masses, calcifications, or other findings are seen in either breast. IMPRESSION: PROBABLY BENIGN See the report for ultrasound performed the same day for additional details. The oval mass in the left breast is probably benign. A follow-up ultrasound in 6 months is recommended to demonstrate stability. The patient has been or will be notified of the results. LUH SAGASTUME M.D. ct/:12/14/2018 13:27:01 Cumulative Effects Analyst: Deirdre ESCAMILLA(Isaias)(Shant), [facility] letter sent: Followup Recommended Mammogram BI-RADS: 3 Probably benign
--- NOTE | 2018-12-15 09:15 | Diagnostic Imaging Report ---
#[id number] - USBRELIMLT ULTRASOUND OF THE LEFT BREAST : 12/14/2018 Comparison is made to exams dated: 12/14/2018 mammogram and 11/27/2018 mammogram - [facility]. Real-time ultrasound was performed on the left breast. There is a 5 mm oval mass with a circumscribed margin in the left breast at 6 o'clock anterior depth. This oval mass is hypoechoic. This correlates with mammography findings. IMPRESSION: PROBABLY BENIGN - FOLLOW-UP RECOMMENDED The 5 mm oval mass in the left breast is probably benign. A follow-up ultrasound in 6 months is recommended to demonstrate stability. The patient has been or will be contacted. ULH SAGASTUME M.D. ct/:12/14/2018 13:28:31 Latin Dancer: ASIA NORWOOD RDID, [facility] letter sent: Followup Recommended Ultrasound BI-RADS: 3 Probably benign
--- NOTE | 2018-12-15 09:15 | Diagnostic Imaging Report ---
#[id number] - USBRELIMRT ULTRASOUND OF THE RIGHT BREAST : 12/14/2018 Comparison is made to exams dated: 12/14/2018 mammogram, 12/14/2018 ultrasound and 11/27/2018 mammogram - [facility]. Real-time ultrasound was performed on the right breast. There are no solid or cystic masses identified. IMPRESSION: BENIGN There is no sonographic evidence of malignancy. A 1 year screening mammogram is recommended for the right breast. See report for left breast ultrasound done at the same time. LUH SAGASTUME M.D. ct/:12/14/2018 13:29:58 Healthcare Network Consultant: ASIA NORWOOD [facility], [facility] letter sent: Normal Exam Ultrasound BI-RADS: 2 Benign
== END ==
LOC: MAMMO 10:05
PROVIDERS: ATTEND Internal Medicine
DX: R92.2 Inconclusive mammogram (principal)
CPT/HCPCS: 77066

== ENCOUNTER 2021-06-01 13:40 | Emergency (ER) | payer OTHER ==
[~2021-06-01] VITALS: Ht 160 cm; Wt 73.0 kg
[2021-06-01] MEDS ORDERED: SODIUM CHLORIDE 0.9% 1000ML 1,000 ML IV STA (14:11)
[2021-06-01] MEDS ORDERED: ONDANSETRON HCL INJ 2MG/ML 2ML 2 MG/ML VIAL IV STA (14:11)
[2021-06-01 14:47] LABS: BASOPHILS # (AUTO) 0.1 (0.0-0.1); BASOPHILS % 0.7 % (0.0-1.0); EOSINOPHILS # (AUTO) 0.1 (0.0-0.4); HEMATOCRIT 42.4 % (34.2-44.1); HEMOGLOBIN 14.5 g/dL (12.0-16.0); LYMPHOCYTES # (AUTO) 3.4 (1.0-3.2); LYMPHOCYTES % 29.8 % (18.0-39.1); MEAN CORPUSCULAR HEMOGLOBIN 29.8 pg (28-32); MEAN CORPUSCULAR HGB CONC 34.2 g/dL (31-35); MEAN CORPUSCULAR VOLUME 87.2 fL (81-99); MONOCYTES # (AUTO) 0.8 (0.2-0.8); MONOCYTES % 6.7 % (4.4-11.3); NEUTROPHILS # (AUTO) 7.1 (2.1-6.9); NEUTROPHILS % 61.5 % (38.7-80.0); PLATELET COUNT 242 x10e3/uL (140-360); RED BLOOD COUNT 4.86 x10e6/uL (3.6-5.1); RED CELL DISTRIBUTION WIDTH 13.4 % (11.7-14.4)
[2021-06-01 14:51] LABS: AMPHETAMINES SCREEN,URINE NEGATIVE (NEGATIVE); BENZODIAZEPINES SCREEN,URINE NEGATIVE (NEGATIVE); CLARITY,URINE CLEAR (CLEAR); COLOR,URINE YELLOW (YELLOW); EPITHELIAL CELLS,URINE FEW /LPF; KETONES,URINE NEGATIVE (NEGATIVE); LEUKOCYTE ESTERASE ,URINE NEGATIVE (NEGATIVE); MUCUS,URINE RARE (RARE); NITRITE,URINE NEGATIVE (NEGATIVE); PHENCYCLIDINE SCREEN,URINE NEGATIVE (NEGATIVE); PROTEIN,URINE DIPSTICK NEGATIVE (NEGATIVE); RBC,URINE 0-5 /HPF (0-5); URINE UROBILINOGEN 0.2 mg/dL (0.2 - 1); WBC,URINE (MAN) 0-5 /HPF (0-5)
[2021-06-01 15:07] LABS: ALANINE AMINOTRANSFERASE 13 IU/L (0-55); ALBUMIN 4.4 g/dL (3.5-5.0); ALBUMIN/GLOBULIN RATIO 1.3 (0.8-2.0); ALKALINE PHOSPHATASE 78 IU/L (40-150); ANION GAP 13.9 mmol/L (8-16); BLOOD UREA NITROGEN 10 mg/dL (7-26); BUN/CREATININE RATIO 11 (6-25); CALCIUM 10.4 mg/dL (8.4-10.2); CARBON DIOXIDE 24 mmol/L (22-29); CHLORIDE 109 mmol/L (98-107); CREATINE KINASE 70 IU/L (29-168); CREATININE, SERUM 0.87 mg/dL (0.57-1.11); EST GLOMERULAR FILTRATION RATE 69 ML/MIN (60-); GLUCOSE 108 mg/dL (74-118); MAGNESIUM 1.9 MG/DL (1.3-2.1); POTASSIUM 3.9 mmol/L (3.5-5.1); SODIUM 143 mmol/L (136-145)
[2021-06-01 15:42] VITALS: BP 149/85
== END 2021-06-01 15:47 | disposition home or self-care (01) ==
LOC: ER 14:15
DX: M62.830 Muscle spasm of back (principal); R20.0 Anesthesia of skin; I10 Essential (primary) hypertension; F17.210 Nicotine dependence, cigarettes, uncomplicated
CPT/HCPCS: 36415; 80053; 80307; 81001; 82550; 82553; 83735; 84443; 84484; 84702; 85025; 87086; 93005; 99284; J7030

== ENCOUNTER 2021-06-05 14:54 | Emergency (ER) | payer OTHER ==
[~2021-06-05] VITALS: Ht 160 cm; Wt 73.0 kg
== END 2021-06-05 16:17 | disposition home or self-care (01) ==
LOC: ER 15:11
DX: I10 Essential (primary) hypertension (principal); J32.9 Chronic sinusitis, unspecified
CPT/HCPCS: 99282

== ENCOUNTER 2021-10-02 15:54 | Emergency (ER) | payer OTHER ==
[~2021-10-02] VITALS: Ht 160 cm; Wt 73.0 kg
[2021-10-02] MEDS ORDERED: ASPIRIN 81 MG CHEW TAB PO ONE (17:00)
[2021-10-02 17:39] LABS: HEMOGLOBIN 13.1 g/dL (12.0-16.0); MEAN CORPUSCULAR HEMOGLOBIN 29.3 pg (28-32); MEAN CORPUSCULAR HGB CONC 32.8 g/dL (31-35); MEAN CORPUSCULAR VOLUME 89.5 fL (81-99); PLATELET COUNT 212 x10e3/uL (140-360); RED BLOOD COUNT 4.47 x10e6/uL (3.6-5.1); RED CELL DISTRIBUTION WIDTH 13.2 % (11.7-14.4)
[2021-10-02 17:57] LABS: ALANINE AMINOTRANSFERASE 14 IU/L (0-55); ALBUMIN 3.9 g/dL (3.5-5.0); ALBUMIN/GLOBULIN RATIO 1.2 (0.8-2.0); ALKALINE PHOSPHATASE 69 IU/L (40-150); ANION GAP 13.7 mmol/L (8-16); BLOOD UREA NITROGEN 12 mg/dL (7-26); BUN/CREATININE RATIO 15 (6-25); CALCIUM 8.7 mg/dL (8.4-10.2); CARBON DIOXIDE 23 mmol/L (22-29); CHLORIDE 110 mmol/L (98-107); CREATINE KINASE 54 IU/L (29-168); CREATININE, SERUM 0.82 mg/dL (0.57-1.11); GLUCOSE 107 mg/dL (74-118); POTASSIUM 3.7 mmol/L (3.5-5.1); SODIUM 143 mmol/L (136-145)
[2021-10-02 18:11] LABS: EOSINOPHILS % (MANUAL) 2 % (0-7); LYMPHOCYTES % (MANUAL) 47 % (19-48); MONOCYTES % (MANUAL) 8 % (3.4-9.0); NEUTROPHILS % (MANUAL) 43 % (40-74); PLATELET ESTIMATE ADEQUATE; PLATELET MORPHOLOGY COMMENT NORMAL; RBC MORPHOLOGY COMMENT NORMAL
[2021-10-02] MEDS ORDERED: ONDANSETRON ODT4 MG PO (19:20)
== END 2021-10-02 19:40 | disposition home or self-care (01) ==
LOC: ER 16:02
DX: R06.00 Dyspnea, unspecified (principal); F43.9 Reaction to severe stress, unspecified; K21.9 Gastro-esophageal reflux disease without esophagitis; I10 Essential (primary) hypertension
CPT/HCPCS: 36415; 80053; 82550; 82553; 83690; 84484; 85007; 85027; 93005; 99283

== ENCOUNTER 2022-01-03 23:18 | Emergency (ER) | payer OTHER ==
[~2022-01-03] VITALS: Ht 160 cm; Wt 78.0 kg
[~2022-01-03 23:18] MED LIST changes: +ONDANSETRON ODT4 MG PO
[2022-01-04] MEDS ORDERED: CYCLOBENZAPRINE5 MG PO (00:20)
[2022-01-04 00:34] VITALS: BP 175/80
== END 2022-01-04 00:34 | disposition home or self-care (01) ==
LOC: FSED 01-04 00:13
DX: S16.1XXA Strain of muscle, fascia and tendon at neck level, initial encounter (principal); I10 Essential (primary) hypertension; F17.210 Nicotine dependence, cigarettes, uncomplicated
CPT/HCPCS: 83518; 87400; 93005; 99282

== ENCOUNTER 2022-05-14 09:19 | Emergency (ER) | payer BC, OTHER ==
[~2022-05-14] VITALS: Ht 160 cm; Wt 78.0 kg
[~2022-05-14 09:19] MED LIST changes: +CYCLOBENZAPRINE5 MG PO
[2022-05-14 11:02] LABS: BASOPHILS # (AUTO) 0.1 (0.0-0.1); BASOPHILS % 0.8 % (0.0-1.0); EOSINOPHILS # (AUTO) 0.3 (0.0-0.4); EOSINOPHILS % 2.5 % (0.0-6.0); HEMATOCRIT 40.8 % (34.2-44.1); HEMOGLOBIN 13.6 g/dL (12.0-16.0); LYMPHOCYTES # (AUTO) 2.1 (1.0-3.2); LYMPHOCYTES % 19.5 % (18.0-39.1); MEAN CORPUSCULAR HEMOGLOBIN 28.9 pg (28-32); MEAN CORPUSCULAR HGB CONC 33.3 g/dL (31-35); MEAN CORPUSCULAR VOLUME 86.8 fL (81-99); MONOCYTES # (AUTO) 0.7 (0.2-0.8); MONOCYTES % 6.3 % (4.4-11.3); NEUTROPHILS # (AUTO) 7.4 (2.1-6.9); NEUTROPHILS % 70.6 % (38.7-80.0); PLATELET COUNT 226 x10e3/uL (140-360); RED CELL DISTRIBUTION WIDTH 13.3 % (11.7-14.4)
[2022-05-14 11:10] LABS: CLARITY,URINE CLEAR (CLEAR); COLOR,URINE YELLOW (YELLOW); KETONES,URINE NEGATIVE (NEGATIVE); LEUKOCYTE ESTERASE ,URINE NEGATIVE (NEGATIVE); NITRITE,URINE NEGATIVE (NEGATIVE); PROTEIN,URINE DIPSTICK NEGATIVE (NEGATIVE); URINE UROBILINOGEN 0.2 mg/dL (0.2 - 1); WBC,URINE (MAN) 0-5 /HPF (0-5)
[2022-05-14 11:11] LABS: BACTERIA,URINE MODERATE /HPF; EPITHELIAL CELLS,URINE FEW /LPF
[2022-05-14 13:02] LABS: ALBUMIN/GLOBULIN RATIO 1.2 (0.8-2.0); ANION GAP 14.9 mmol/L (8-16); CALCIUM 9.5 mg/dL (8.4-10.2); CREATININE, SERUM 0.91 mg/dL (0.57-1.11); POTASSIUM 3.9 mmol/L (3.5-5.1)
[2022-05-14] MEDS ORDERED: IOPAMIDOL 370 MG/ML 100 ML INFUS..BTL INJ ONE (13:44)
[2022-05-14] MEDS ORDERED: ONDANSETRON ODT4 MG PO (14:49)
[2022-05-14] MEDS ORDERED: CARAFATE1 GM/10 ML PO (14:49)
[2022-05-14] MEDS ORDERED: DICYCLOMINE HCL20 MG PO (14:49)
[2022-05-14 15:06] VITALS: BP 137/77
== END 2022-05-14 15:08 | disposition home or self-care (01) ==
LOC: ER 09:43
DX: R10.13 Epigastric pain (principal); K29.70 Gastritis, unspecified, without bleeding; N28.89 Other specified disorders of kidney and ureter; I10 Essential (primary) hypertension; K21.9 Gastro-esophageal reflux disease without esophagitis; F41.9 Anxiety disorder, unspecified
CPT/HCPCS: 36415; 74177; 76705; 80053; 81001; 83690; 85025; 93005; 99284; Q9967

== ENCOUNTER 2024-10-25 08:17 | Emergency (ER) | payer OTHER ==
[~2024-10-25] VITALS: Ht 160 cm; Wt 79.4 kg
[~2024-10-25 08:17] MED LIST changes: +CARAFATE1 GM/10 ML PO; +DICYCLOMINE HCL20 MG PO
[2024-10-25] MEDS ORDERED: CELEBREX200 MG PO (09:10)
[2024-10-25] MEDS ORDERED: KLONOPIN1 MG PO (09:10)
[2024-10-25] MEDS: KETOROLAC TROMETHAMINE 30 MG/ML VIAL IV STA (10:07)
[2024-10-25] MEDS ORDERED: METHOCARBAMOL750 MG PO (10:12)
[2024-10-25 10:42] VITALS: PULSE 68; RESP 17; TEMP 98.4; O2SAT 96
== END 2024-10-25 10:42 | disposition home or self-care (01) ==
LOC: FSED 08:41
DX: R07.89 Other chest pain (principal); M62.830 Muscle spasm of back; I10 Essential (primary) hypertension; K21.9 Gastro-esophageal reflux disease without esophagitis; F41.9 Anxiety disorder, unspecified
CPT/HCPCS: 71045; 80053; 81003; 84484; 85025; 85379; 93005; 99284; J1885